=== PATIENT | female | born 1940 | race African-American/Black ===

== ENCOUNTER 2018-07-21 13:48 | Emergency (ER) | payer MEDICARE ==
[~2018-07-21] VITALS: Ht 162.6 cm; Wt 61.0 kg
[~2018-07-21 13:48] MED LIST: ATEN-42 PO
[2018-07-21] MEDS ORDERED: IBUPROFEN 600MG TABLET PO ONE (15:45)
[2018-07-21 15:58] VITALS: BP 147/68
== END 2018-07-21 16:09 | disposition home or self-care (01) ==
LOC: ER 13:48
DX: S13.4XXA Sprain of ligaments of cervical spine, initial encounter (principal); S20.219A Contusion of unspecified front wall of thorax, initial encounter; I10 Essential (primary) hypertension; Z79.899 Other long term (current) drug therapy; V43.02XA Car driver injured in collision with other type car in nontraffic accident, initial encounter; Y93.89 Activity, other specified; Y92.89 Other specified places as the place of occurrence of the external cause; Y99.8 Other external cause status
CPT/HCPCS: 71045; 99284